=== PATIENT | male | born 1995 | race African-American/Black ===

== ENCOUNTER 2016-11-09 18:09 | Emergency (ER) | payer MEDICAID ==
[2016-11-09 18:25] VITALS: BP 132/72
--- NOTE | 2016-11-09 18:40 | ED Physician Chart ---
Chief Complaint/HPI - Patient Information Date Seen:: 11/09/16 Time Seen:: 18:25 Chief Complaint:: pain right hemipelvis History of Present Illness:: After walking about 2 miles patient developed pain right ileum. Patient drank 40 ounces of beer today but denies any illicit drug use Allergies:: Allergies Allergy/AdvReac Type Severity Reaction Status Date / Time No Known Allergies Allergy Verified 11/09/16 18:24 Vitals:: Vital Signs - 8 hr 11/09/16 11/09/16 18:24 18:27 Temp 98.4 F HR 88 RR 15 BP 132/72 132/72 O2 Sat % 98 Historian:: Patient, EMS Review:: Nurse's Note Reviewed Review of Systems - Review of Systems General/Constitutional: No fever, No chills Skin: No skin lesions Head: No headache Eyes: No loss of vision ENT: No earache Neck: No neck pain, No swelling Cardio Vascular: No chest pain, No palpitations GI: Nausea, No vomiting, No diarrhea G/U: No dysuria Musculoskeletal: Bone or joint pain Psychiatric: No prior psych history, No depression Hematopoietic: Bruising Allergic/Immuno: No urticaria Neurological: No syncope, No focal symptoms Past Medical History - Past Medical History Past Medical History: No significant medical hx Family History: Cancer, Other (mother had breast cancer) Social History: Smoker, Alcohol Surgical History: Appendectomy Psychiatricy History: None Medication: None Family Medical History - Family Member Mother History Unknown: Yes Physical Exam - Physical Examination General/Constitutional: Well-developed, well-nourished, Alert, No distress Head: Atraumatic Eyes: Lids, conjuctiva normal, PERRL Skin: Nl inspection, No rash, No skin lesions, No ecchymosis ENMT: External ears, nose nl, Lips, teeth, gums nl Neck: No nuchal rigidity Respiratory: Nl effort/Exclusion, Clear to Auscultation Cardio Vascular: RRR, No murmur, gallop, rubs GI: No tenderness/rebounding/guarding, No organomegaly, No hernia, Normal BS's, Nondistended, No mass/bruits, No McBurney tenderness : No CVA tenderness Extremities: Normal digits & nails Other Extremities comments:: Maintains right hip at a maximum degree of flexion, abduction and external rotation without apparent discomfort. Neuro/Psych: Alert/oriented, No focal deficits Labs/Radiology/EKG Results - Lab Results Comments:: Laboratory Results - last 24 hr 11/09/16 18:41 Ethyl Alcohol < 10 - Radiology Results Results: AP pelvis and both hips normal Assessment - Assessment General Assessment: At 2049 walked with slight limp only ED Septic Shock - . Is Septic Shock (SBP<90, OR Lactate>4 mmol\L) present?: No - <6hrs of presentation: Vital Signs: Vital Signs - 8 hr 11/09/16 11/09/16 18:24 18:27 Temp 98.4 F HR 88 RR 15 BP 132/72 132/72 O2 Sat % 98 Reassessment (Disposition) - Reassessment Reassessment Condition:: Improved - Aftercare/Follow up Instructions Aftercare/Follow-Up Instructions:: Refer to Discharge Instructions - Patient Disposition Discharge/Transfer:: Home ED Discharge Plan - Patient Disposition Instructions: Methamphetamine Abuse, Complications Additional Instructions: stop taking methamphetamine drink plenty of water
--- NOTE | 2016-11-10 10:13 | Diagnostic Imaging Report ---
Pelvis single view Indication: pain Comparison: Hip x-rays the same day Findings: No evidence of an acute fracture or dislocation. The bilateral femoral heads demonstrate normal contour. The bony mineralization is within normal limits. The SI joints are intact. Impression: No evidence of an acute fracture. In the setting of trauma, if clinical symptoms persist and there is continued concern for an occult fracture, follow up exams in 5-7 days is suggested.
--- NOTE | 2016-11-10 10:14 | Diagnostic Imaging Report ---
Right hip 2 views Indication: pain Comparison: Pelvis x-rays the same day Findings: No evidence of acute fracture or dislocation. The right femoral head demonstrates normal contour. The bony mineralization is within normal limits. No focal soft tissue swelling. Impression: No evidence of an acute fracture. In the setting of trauma, if clinical symptoms persist and there is continued concern for an occult fracture, follow up exams in 5-7 days is suggested.
--- NOTE | 2016-11-10 10:14 | Diagnostic Imaging Report ---
Left hip 2 views Indication: pain Comparison: Pelvis x-rays the same day Findings: No evidence of acute fracture or dislocation. The left femoral head demonstrates normal contour. The bony mineralization is within normal limits. No focal soft tissue swelling. Impression: No evidence of an acute fracture. In the setting of trauma, if clinical symptoms persist and there is continued concern for an occult fracture, follow up exams in 5-7 days is suggested.
== END 2016-11-09 20:50 | disposition home or self-care (01) ==
LOC: ER 18:09
DX: R10.2 Pelvic and perineal pain (principal); F17.200 Nicotine dependence, unspecified, uncomplicated; Z90.49 Acquired absence of other specified parts of digestive tract; Z59.0 Homelessness
CPT/HCPCS: 36415-UA; 72170-TC; 73501; 80320-TC